=== PATIENT | male | born 1965 ===

== ENCOUNTER 2021-05-30 09:24 | Outpatient (CLI) | payer SELFPAY ==
[2021-05-30 11:36] LABS: Hemoglobin 15.2 g/dL (13.5-17.5); Mean Corpuscular HGB CONC 33.9 g/dL (32.0-36.0); Mean Corpuscular Volume 91.4 fl (81.2-95.1); Mean Platelet Volume 9.4 fl (7.4-10.4); Platelet Count 340 10x3/uL (150-450); RBC Distribution Width 14.1 % (11.5-14.5); Red Blood Cell (RBC) Count 4.91 10x6/uL (4.32-5.72); White Blood Cell (WBC) Count 10.1 10x3/uL (3.5-10.5)
[2021-05-30 11:42] LABS: Anion Gap 14 mmol/L (10-20); BUN (Urea Nitrogen) 13 mg/dL (8.4-25.7); Calc. Creatinine Clearance 0 mL/min (70-130); Carbon Dioxide 23 mmol/L (22-29); Chloride 110 mmol/L (98-107); Glucose 84 mg/dL (70-105); Potassium 4.6 mmol/L (3.5-5.1); Sodium 142 mmol/L (136-145)
[2021-05-30 17:22] LABS: SARS-CoV-2 PCR by NAA Not Detected (NotDetected)
== END 2021-05-30 09:25 | disposition home or self-care (01) ==
LOC: CSHLAB 09:24
PROVIDERS: ATTEND Otolaryngology Plastic Surgery within the Head & Neck
DX: Z01.818 Encounter for other preprocedural examination (principal); Z20.822 Contact with and (suspected) exposure to COVID-19; D49.0 Neoplasm of unspecified behavior of digestive system; L98.9 Disorder of the skin and subcutaneous tissue, unspecified; D11.0 Benign neoplasm of parotid gland
CPT/HCPCS: 80048; 85027; 93005; 93010; U0003; U0005

== ENCOUNTER 2021-06-04 10:00 | Observation (INO) | payer SELFPAY ==
[2021-05-29 16:04] VITALS: BMI 30.5
[2021-06-04] MEDS ORDERED: Lidocaine 1% MPF 2 ML VIAL ONE (12:04)
[2021-06-04] MEDS ORDERED: Midazolam HCl 2 mg/2 ml Vial ONE (13:36)
[2021-06-04] MEDS ORDERED: Dexamethasone 20 MG/5 ML VIAL ONE (13:36)
[2021-06-04] MEDS ORDERED: PROPOFOL 20 ML ONE ×4 (13:36→14:44)
[2021-06-04] MEDS ORDERED: Rocuronium Bromide 10 MG/ML (10ML VIAL) ONE (13:36)
[2021-06-04] MEDS ORDERED: Lidocaine 1% PF 5 ML VIAL ONE (13:36)
[2021-06-04] MEDS ORDERED: Fentanyl 250 MCG/5 ML VIAL ONE (13:36)
[2021-06-04] MEDS ORDERED: Ondansetron PF 4 MG/2 ML Vial ONE (14:06)
[2021-06-04] MEDS ORDERED: Lidocaine 1% w/Epinephrine 1:100K 30 ML VIAL ONE (14:09)
[2021-06-04] MEDS ORDERED: Mupirocin 2% Ointment 22 GM Tube ONE (14:12)
[2021-06-04] MEDS ORDERED: CEFAZOLIN 1 GM VIAL ONE (14:17)
[2021-06-04] MEDS ORDERED: Fentanyl 100 MCG/2 ML VIAL ONE ×2 (14:53→15:06)
[2021-06-04] MEDS ORDERED: Labetalol HCl 100 MG/20 ML VIAL ONE (15:22)
[2021-06-04] MEDS ORDERED: Meperidine HCl/PF 25 MG/ML VIAL ONE (16:21)
== END 2021-06-04 21:24 | disposition home or self-care (01) ==
LOC: CSHSDC 10:00 → CSHTELE 11:54 → INTOOBSV 11:54
PROVIDERS: ADMIT Otolaryngology Plastic Surgery within the Head & Neck; ATTEND Otolaryngology Plastic Surgery within the Head & Neck
DX: C44.1121 Basal cell carcinoma of skin of right upper eyelid, including canthus (principal); D11.0 Benign neoplasm of parotid gland; I10 Essential (primary) hypertension; I25.10 Atherosclerotic heart disease of native coronary artery without angina pectoris; I25.2 Old myocardial infarction; Z86.73 Personal history of transient ischemic attack (TIA), and cerebral infarction without residual deficits; Z95.5 Presence of coronary angioplasty implant and graft; F17.210 Nicotine dependence, cigarettes, uncomplicated
CPT/HCPCS: 88305; 88307; 88331; 88332; J0690; J1100; J2175; J2250; J2405; J2704; J3010